=== PATIENT | female | born 1945 | race Caucasian/White ===

== ENCOUNTER 2016-12-03 23:48 | Inpatient (IN) | payer OTHER ==
[~2016-12-03] VITALS: Ht 154.9 cm; Wt 70.0 kg
--- NOTE | ~2016-12-03 | 2DMMODE ---
[facility] [place] [address] 2 D/M-MODE ECHOCARDIOGRAM Name: XIJAIME L Room #: 218-P ADM IN .R.#: [id number] Admission: 12/04/16 Attend Phys: Lauren Robles Discharge: Date of : 43 Date of Service: 12/04/16 1332 Report #: [id number] THIS REPORT FOR: //name// APPROVED REPORT Study performed: 12/04/2016 09:26:42 EXAM: Comprehensive 2D, Doppler, and color-flow Echocardiogram Patient Location: Bedside/Room 218 Blood Pressure: 164/87 mmHg HR: 59 bpm Rhythm: NSR Other Information Study Quality: Good Indications Atrial Fibrillation Hx: HTN 2D Dimensions RVDd: 28.10 mm LVEF(%): 51.24 (>50%) IVSd: 10.96 (7-11mm) LVOT Diam: 22.34 (18-24mm) LVDd: 54.18 mm PWd: 10.77 (7-11mm) Ascending Aorta: 43.56 mm LVDs: 39.87 (25-40mm) Aortic Root: 37.22 mm Montejo's LVEF: 51.24 % Volumes Left Atrial Volume (Systole) Single Plane 4CH: 58.55 mL Single Plane 2CH: 65.29 mL LA ESV Index: 41.00 mL/m2 Aortic Valve AoV Peak Wilton.: 2.04 m/s AI PHT: 792.62 ms AO Peak Gr.: 16.68 mmHg AO Mean Gr.: 9.36 mmHg LV Max P.78 mmHg AO V2 VTI: 457.23 mm LV Max: 1.09 m/s AI Vmax: 3.94 m/s AI Wyandot: 1.44 m/s2 Mitral Valve [facility] [place] [address] 2 D/M-MODE ECHOCARDIOGRAM Name: JAIME LAYNE Room #: 218-[facility] IN M.R.#: [id number] Admission: 12/04/16 Attend Phys: Lauren Robles Discharge: Date of : 43 Date of Service: 12/04/16 1332 Report #: [id number] MV PHT: 106.95 ms MV E Max Wilton.: 1.10 m/s E/A Ratio: 0.9 MV A Wilton.: 1.19 m/s MV Decel. Time: 368.79 ms Pulmonary Valve PV Peak Wilton.: 1.32 m/s PV Peak Gr.: 6.98 mmHg Tricuspid Valve TR Peak Wilton.: 2.69 m/s RAP Estimate: 5.00 mmHg TR Peak Gr.: 29.05 mmHg RVSP: 35.00 mmHg Left Ventricle The left ventricle is normal size. There is normal LV segmental wall motion. Mild concentric left ventricular hypertrophy. Left ventricular systolic function is low normal. LVEF is 55%. Grade I - abnormal relaxation pattern. Right Ventricle The right ventricle is normal size. The right ventricular systolic function is normal. Atria Left atrium is mild to moderately dilated. The right atrium size is normal. Aortic Valve Aortic valve is calcified. Mild aortic regurgitation. There is no aortic valvular stenosis. Mitral Valve Mitral valve leaflets are thickened. Mild mitral annular calcification. Mild to moderate mitral regurgitation. Tricuspid Valve The tricuspid valve is normal in structure. There is trace to mild tricuspid regurgitation. The right atrial pressure is estimated at 5 mmHg. There is mild pulmonary hypertension with an estimate PAP of 35mmHg. Pulmonic Valve The pulmonary valve is normal in structure. Mild pulmonic regurgitation. Great Vessels Aortic root is borderline dilated. The ascending aorta is dilated at 4.4cm. IVC is normal in size and collapses >50% with [facility] [address] [place] [address] 2 D/M-MODE ECHOCARDIOGRAM Name: JAIME LAYNE Room #: 218-P [facility] IN [facility]#: [id number] Admission: 12/04/16 Attend Phys: Luaren Robles Discharge: Date of : 43 Date of Service: 12/04/16 1332 Report #: [id number] inspiration. Pericardium Very small pericardial effusion. <Conclusion> The left ventricle is normal size. Normal LV segmental wall motion. Mild concentric left ventricular hypertrophy. LVEF 55%. Grade I diastolic dysfunction. Aortic valve is calcified, trileaflet. Mild aortic regurgitation, no significant stenosis. Mitral valve leaflets are thickened. Mild mitral annular calcification. Mild mitral regurgitation. There is mild pulmonary hypertension with an estimate PAP of 35mmHg. The ascending aorta is dilated at 4.4cm. Very small pericardial effusion. <ELECTRONICALLY SIGNED> By: Erickson aDigle MD, [facility] 12/04/161331 31 31 Erickson Daigle MD, FACC /INF
--- NOTE | ~2016-12-03 | EKG ---
[address] [address] ELECTROCARDIOGRAM REPORT Name: JAIME LAYNE Room #: 218-P ADM IN M.R.#: [id number] Admission: 12/04/16 Attend Phys: Lauren Rocha Discharge: Date of : 43 Report #: [id number] THIS REPORT FOR: //name// [facility] ED Test Date: 2016-12-04 Test Time: 00:03:53 Pat Name: JAIME LAYNE Department: Room: 218 Gender: F Mechanical Operator: [email or web address] : 1945 Requested By: Sathya Jolly Order Number: [id number] MD: Erickson Daigle Measurements Intervals [place] Rate: 132 P: [place]: QRS: -22 QRSD: 95 T: 122 QT: 295 QTc: 437 Interpretive Statements Atrial fibrillation LVH with secondary repolarization abnormality No previous ECG available for comparison Electronically Signed On 12-05-2016 11:36:08 CDT by Erickson Daigle [email or web address] <ELECTRONICALLY SIGNED> By: Erickson Daigle MD, [facility] 12/05/16 1136 0003 0003 Erickson Daigle MD, FACC /EPI
--- NOTE | ~2016-12-03 | HC ---
[facility] [address] [address] [place] [address] CONSULTATION Name: JAIME LAYNE Room #: 218-P [facility] IN M.R.#: [id number] Admission: 12/04/16 Attend Phys: Lauren Rocha Discharge: Date of : 43 Report #: [id number] THIS REPORT FOR: //name// CC: FAM unknown Lauren Rocha DATE OF SERVICE: 12/04/2016 REASON FOR CONSULTATION: Atrial fibrillation. HISTORY OF PRESENT ILLNESS: The patient is a 71-year-old woman with history of hypertension, but otherwise fairly limited past medical history. She was watching television last evening and reports the development of a pounding and racing heart beat. This frightened her and knew that this was not normal. She presented to the Emergency Department where she was found to be in atrial fibrillation with a rapid ventricular response. With intravenous Cardizem and improved heart rate control, her palpitations and chest symptoms resolved. She has now converted back to sinus rhythm. She denies a prior history of atrial fibrillation. No history of heart failure symptoms, chest heaviness or pressure, near syncope or syncope. She is active and exercises regularly without limitation. ALLERGIES: She is allergic to CODEINE. MEDICATIONS: Include lisinopril 40 mg daily, oxybutynin 5 mg twice daily and Namzaric. Her past history and medical records have been reviewed and include a history of a prior and remote tobacco dependency. She lives with her son. FAMILY HISTORY: Unknown; she was adopted. REVIEW OF SYSTEMS: All systems negative except as that noted above. PHYSICAL EXAMINATION: GENERAL: She is a pleasant woman in no distress. VITAL SIGNS: Blood pressure is 160/80, heart rate of 69 and regular, she is afebrile, 5 feet 1 inches tall and 154 pounds. HEENT: There are neither xanthelasma, subcutaneous xanthomata, oral mucosal or digital cyanosis or kyphoscoliosis present. CHEST: Clear to auscultation and percussion. CARDIOVASCULAR: Regular rate and rhythm with a normal S1 and S2. No murmurs, gallops or rubs. ABDOMEN: Soft and nontender. EXTREMITIES: Without cyanosis, clubbing or edema. Radial pulses are 2+. NEUROLOGIC: She is alert with a nonfocal exam. [facility] [address] [place] [address] CONSULTATION Name: JAIME LAYNE Room #: [address] [place] [address] IN .R.#: [id number] Admission: 12/04/16 Attend Phys: Lauren Rocha Discharge: Date of : 43 Report #: [id number] LABORATORY DATA: Sodium is 144, potassium 3.7, creatinine 0.8, troponin of 0 and proBNP of 1391. White count 7.1, hemoglobin 13, hematocrit 41 and platelet count 175. DIAGNOSTIC DATA: Chest x-ray demonstrates mild pulmonary venous congestion. EKG this morning shows sinus rhythm. IMPRESSION: 1. Paroxysmal atrial fibrillation, now in sinus rhythm. 2. Hypertension. 3. Remote tobacco dependency. 4. Hypercoagulable (CHADS-VASc score of 2). 5. Dementia RECOMMENDATIONS: 1. Migration from intravenous to oral Cardizem. 2. Anticoagulant therapy given elevated CHADS-VASc score, therapy with apixaban has been started. 3. Echocardiogram with Doppler. 4. Thyroid function studies. Further thoughts will be forthcoming based on this evaluation. Thank you for asking me to participate in the patient's care. <ELECTRONICALLY SIGNED> By: Erickson Daigle MD, [facility] 12/05/16 1209 0857 1651 Erickson Daigle MD, [facility] /nt
--- NOTE | ~2016-12-03 | H ---
[facility] [address] [address] HISTORY AND PHYSICAL Name: JAIME LAYNE Room #: 218-P [facility] IN .R.#: [id number] Admission: 12/04/16 Attend Phys: Lauren Rocha Discharge: 12/05/16 Date of : 43 Report #: [id number] THIS REPORT FOR: //name// CC: FAM unknown Lauren Rocha DATE OF SERVICE: 12/04/2016 ATTENDING PHYSICIAN: Lauren Rocha M.D. PRIMARY CARE PHYSICIAN: None. CHIEF COMPLAINT: Chest pounding and shortness of breath. HISTORY OF PRESENT ILLNESS: The patient is a 71-year-old female with a history of mild dementia. Apparently, she was at home with her son when she had a sudden onset chest pounding. She said there was a comfortable with this in her chest. She also had some shortness of breath. She denied any nausea or vomiting or diaphoresis with this. The pounding persisted, and so she came into the ER. She was tearful on arrival. She denies any recent similar episodes, but did state she was actually hospitalized for this one other time in 2004. I actually have those records, and she was admitted for heart palpitations and was monitored on telemetry and actually sent home on Holter monitor for a few weeks, and there was no arrhythmia ever seen. She denied any prior diagnosis of atrial fibrillation. As far as her chest discomfort, there was no radiation of the pain, and she denies any recent exertional chest pain. In the ER, she was noted to have atrial fibrillation with a rate up to 140. She was given a Cardizem bolus and Cardizem drip, and she is now rate controlled in the 70s to 80s. She does have some mild dementia, so she is somewhat a poor historian, but her son is at her bedside and helping with some of this information. She did state she had a recent cough with congestion and sore throat. She has been taking some rikw-voh-kvtrjav medications. She is now resting comfortably and says her pain is gone, but that she occasionally still feels a flutter in her chest. PAST MEDICAL HISTORY: GERD, asthma, hypertension, allergic rhinitis and dementia. PAST SURGICAL HISTORY: Bilateral hip replacements. ALLERGIES: CODEINE, unknown reaction. She also says most ANESTHESIA makes her very sleepy for a few days. HOME MEDICATIONS: Lisinopril 40 mg daily, Namzaric 28/10 1 tab daily and oxybutynin 5 mg b.i.d. SOCIAL HISTORY: The patient is an ex-smoker. She quit about 29 years ago, but [address] [place] [address] HISTORY AND PHYSICAL Name: JAIME LAYNE Room #: 218-P [facility] IN M.R.#: [id number] Admission: 12/04/16 Attend Phys: Lauren Rocha Discharge: 12/05/16 Date of : 43 Report #: [id number] at one point was smoking up to 3 packs per day. She drinks alcohol rarely. Denies any drug use. She lives at home with her son. REVIEW OF SYSTEMS: Unobtainable due to altered mental status. PHYSICAL EXAMINATION: GENERAL: The patient is an alert female in no acute distress. VITAL SIGNS: Temperature is 36.8, heart rate 138 on arrival, it is now 72, respirations 32, is now down to 20 and blood pressure was 160/90 and is now down to 112/74 and oxygen 96% on room air. HEENT: PERRLA. Sclerae are nonicteric. Oral mucosa is pink and moist. NECK: Supple, no JVD noted. CARDIOVASCULAR: Heart rate is irregular, but no murmurs, rubs or gallops. RESPIRATORY: Breath sounds are clear bilaterally. No wheezing or rhonchi. Breathing is nonlabored. ABDOMEN: Soft, nontender and nondistended with positive bowel sounds. VASCULAR: No edema noted. Pedal pulses are 2+. NEUROLOGIC: The patient is alert and oriented x 3. She is aware she is in the hospital and that it is November 2016, she recognized her son. She is able to follow all commands and is moving all extremities equally. She is a poor historian overall. SKIN: She does have a reddened rash area on her lateral right calf area. You can see there is some underlying scarring with a brownish discoloration, and on top of that, there are some reddened patchy areas, but there are no open wounds or bleeding. There is no surrounding erythema such as cellulitis. LABORATORY AND DIAGNOSTIC DATA: WBC is 7.1, hemoglobin 13.4 and platelets 175. Sodium 144, potassium 3.7, BUN 24 and creatinine 0.8. Troponins negative. BNP is 1391. EKG showing atrial fibrillation, rate of 132, with some LVH and chest x-ray showed some cardiomegaly with mild pulmonary vascular effusion, no pneumothorax or new infiltrations. ASSESSMENT AND PLAN: 1. Atrial fibrillation with rapid ventricular response. This is new onset. She has been given Cardizem and remains on a Cardizem bolus. We will titrate that to keep her heart rate less than 100. We will go ahead and give a dose of therapeutic Lovenox and consult cardiology. Continue to monitor on telemetry. She currently remains in sinus rhythm, but she is now rate controlled in the 70s. We will have cardiology address anticoagulation as well. 2. Hypertension. Blood pressure is elevated. Resume lisinopril as at home. 3. Dementia. This is stable. Continue Namzaric as at home. The patient is at baseline according to her son. 4. Deep venous thrombosis prophylaxis, place sequential compression devices. [facility] [address] [place] [address] HISTORY AND PHYSICAL Name: JAIME LAYNE Room #: 218-P [facility] [id number] Admission: 12/04/16 Attend Phys: Lauren Rocha Discharge: 12/05/16 Date of : 43 Report #: [id number] We will continue to follow the patient closely throughout the hospitalization and make changes based on clinical status. <ELECTRONICALLY SIGNED> By: KAREL Hirsch 12/07/16 0608 0717 1044 KAREL Hirsch /emy
--- NOTE | ~2016-12-03 | EKG ---
[place] [address] [facility] [place] [address] ELECTROCARDIOGRAM REPORT Name: JAIME LAYNE Room #: 218- ADM IN M.R.#: [id number] Admission: 12/04/16 Attend Phys: Lauren Rocha Discharge: Date of : 43 Report #: [id number] THIS REPORT FOR: //name// Test Date: 2016-12-04 Test Time: 09:12:44 Pat Name: JAIME LAYNE Department: Room: 218 P Gender: F Senior Safety Support Manager: JOANNE : 1945 Requested By: Erickson Daigle Order Number: [id number] MD: Erickson Daigle Measurements Intervals [place] Rate: 59 P: 45 DC: 165 QRS: -22 QRSD: 110 T: 64 QT: 438 QTc: 434 Interpretive Statements Sinus rhythm Abnormal R-wave progression, late transition LVH with IVCD and secondary repol abnrm No previous ECG available for comparison Electronically Signed On 12-05-2016 11:38:21 CDT by Erickson Daigle [email or web address] <ELECTRONICALLY SIGNED> By: Erickson Daigle MD, [facility] 12/05/16 1138 1 1 Erickson Daigle MD, [facility] /EPI
--- NOTE | ~2016-12-03 | EKG ---
[place] [address] [facility] [place] [address] ELECTROCARDIOGRAM REPORT Name: JAIME LAYNE Room #: 218- ADM IN M.R.#: [id number] Admission: 12/04/16 Attend Phys: Lauren Rocha Discharge: Date of : 43 Report #: [id number] THIS REPORT FOR: //name// [facility] Test Date: 2016-12-05 Test Time: 08:52:08 Pat Name: JAIME LAYNE Department: Room: 218 P Gender: F Operational Risk Manager: GEETHA : 1945 Requested By: Erickson Daigle Order Number: [id number] MD: Erickson Daigle Measurements Intervals [place] Rate: 60 P: 45 MA: 131 QRS: -24 QRSD: 110 T: 78 QT: 486 QTc: 486 Interpretive Statements Sinus rhythm Probable left atrial enlargement Abnormal R-wave progression, late transition LVH with IVCD and secondary repol abnrm No previous ECG available for comparison Electronically Signed On 12-05-2016 11:57:02 CDT by Erickson Daigle [email or web address] <ELECTRONICALLY SIGNED> By: Erickson Diagle MD, [facility] 12/05/16 1157 0852 0852 Erickson Daigle MD, [facility] /EPI
[~2016-12-03 23:48] MED LIST: ANTIVERT25 MG PO; ARICEPT 5 MG TAB5 MG; ARICEPT 5 MG TAB5 MG PO; DILTIAZEM 24HR240 MG PO; FLEXERIL PO; IBUPROFEN 600600 M1 PO; KEFLEX500 MG PO; LISINOPRIL20 MG PO; LISINOPRIL40 MG PO; NAMENDA 10 MG T10 MG PO; NORCO 5-325 TA1 EACH PO; OXYBUTYNIN 5 MG5 M2 PO; PAXIL 20 MG TAB20 M1 PO; TOPROL XL25 MG PO; TRAMADOL 50 MG50 MG PO; ZOFRAN ODT4 MG PO; ZOFRAN4 MG PO
[2016-12-04] VITALS (7 sets, daily range): BP systolic 112–179; BP diastolic 66–90
[2016-12-04 00:16] LABS: BASOPHILS 1.1 % (0.0-2.0); EOSINOPHILS 1.8 % (0.0-3.0); HEMOGLOBIN 13.4 gm/dL (12.0-15.0); LYMPHOCYTES 35.3 % (24.0-44.0); MCH 29.9 pg (26.0-34.0); MCHC 32.7 g/dL (28.0-37.0); MCV 91.3 fL (80.0-100.0); MONOCYTES 5.5 % (1.0-8.0); PLATELET COUNT 175 thou/uL (150-400); POLYS 56.3 % (36.0-66.0); RDW 14.3 % (10.5-14.5); WBC 7.1 thou/uL (4.0-11.0)
[2016-12-04 00:20] LABS: MANUAL DIFF NO
[2016-12-04 00:41] LABS: ANION GAP 11 mmol/L (7-16); BUN 24 mg/dL (7-18); CALCIUM 8.9 mg/dL (8.5-10.1); CHLORIDE 107 mmol/L (98-107); CO2 26 mmol/L (21-32); CREATININE 0.8 mg/dL (0.6-1.0); GLUCOSE 104 mg/dL (74-106); NT-PRO BRAIN NAT PEPTIDE 1391 pg/mL (<300); POTASSIUM 3.7 mmol/L (3.5-5.1); SODIUM 144 mmol/L (136-145); TROPONIN-I < 0.04 ng/mL (<0.04-0.07)
[2016-12-04] MEDS ORDERED: NAMZARIC 28 MG1 EACH PO (02:43)
[2016-12-04] MEDS ORDERED: PRINIVIL20 MG PO (02:43)
[2016-12-04] MEDS ORDERED: OXYBUTYNIN 5 MG5 M2 PO (02:43)
[2016-12-05 00:05] VITALS: BP 183/76
[2016-12-05 03:04] LABS: ABSOLUTE NEUTROPHILS 3.5 thou/uL (1.4-8.2); BASOPHILS 1.1 % (0.0-2.0); EOSINOPHILS 2.6 % (0.0-3.0); HEMATOCRIT 38.7 % (37.0-47.0); HEMOGLOBIN 12.6 gm/dL (12.0-15.0); LYMPHOCYTES 34.6 % (24.0-44.0); MCH 30.1 pg (26.0-34.0); MCHC 32.6 g/dL (28.0-37.0); MCV 92.2 fL (80.0-100.0); MONOCYTES 6.4 % (1.0-8.0); PLATELET COUNT 168 thou/uL (150-400); POLYS 55.3 % (36.0-66.0); RDW 14.5 % (10.5-14.5); WBC 6.3 thou/uL (4.0-11.0)
[2016-12-05 03:05] VITALS: BP 178/76
[2016-12-05 03:10] LABS: CALCIUM 8.7 mg/dL (8.5-10.1); CREATININE 0.8 mg/dL (0.6-1.0); POTASSIUM 3.8 mmol/L (3.5-5.1)
[2016-12-05 03:26] LABS: MANUAL DIFF NO
[2016-12-05] MEDS ORDERED: CARDIZEM CD180 MG PO (08:53)
[2016-12-05] MEDS ORDERED: ELIQUIS5 MG PO (08:53)
[2016-12-05 09:15] VITALS: BP 158/66
[2016-12-05 10:25] VITALS: BP 158/66
[2016-12-05 13:37] VITALS: BP 158/66
== END 2016-12-05 13:16 | disposition home or self-care (01) | DRG 309 ==
LOC: ER 23:48 → EROBS 12-04 02:08 → 2N 12-04 02:08
PROVIDERS: Emergency Medicine; Hospitalist
DX: I48.0 Paroxysmal atrial fibrillation (principal); D68.59 Other primary thrombophilia; I50.30 Unspecified diastolic (congestive) heart failure; K21.9 Gastro-esophageal reflux disease without esophagitis; J45.909 Unspecified asthma, uncomplicated; J31.0 Chronic rhinitis; F03.90 Unspecified dementia, unspecified severity, without behavioral disturbance, psychotic disturbance, mood disturbance, and anxiety; Z96.643 Presence of artificial hip joint, bilateral; I11.0 Hypertensive heart disease with heart failure; Z87.891 Personal history of nicotine dependence; Z88.6 Allergy status to analgesic agent; Z79.899 Other long term (current) drug therapy
CPT/HCPCS: 10081

== ENCOUNTER 2017-01-31 01:55 | Inpatient (IN) | payer OTHER ==
[~2017-01-31] VITALS: Ht 162.6 cm; Wt 60.4 kg
[2017-01-31] VITALS (7 sets, daily range): BP systolic 125–171; BP diastolic 62–92
--- NOTE | ~2017-01-31 | EKG ---
[address] [address] ELECTROCARDIOGRAM REPORT Name: JAIME LAYNE Room #: 216-P ADM IN M.R.#: [id number] Admission: 01/31/17 Attend Phys: Kumar Cunha MD Discharge: Date of : 43 Report #: [id number] THIS REPORT FOR: //name// [facility] ED Test Date: 2017-01-31 Test Time: 02:19:14 Pat Name: JAIME LAYNE Department: Room: [facility] Gender: F Floor Surfacer: heriberto : 1945 Requested By: Anh Irizarry Order Number: [id number] MD: Erickson Daigle Measurements Intervals [place] Rate: 103 P: [place]: QRS: -27 QRSD: 99 T: 83 QT: 362 QTc: 474 Interpretive Statements Atrial fibrillation LVH with secondary repolarization abnormality Compared to ECG 12/05/2016 08:52:08 Sinus rhythm no longer present Electronically Signed On 01-31-2017 8:36:47 CDT by Erickson Daigle [email or web address] <ELECTRONICALLY SIGNED> By: Erickson Daigle MD, [facility] 01/31/17 0836 8 8 Erickson Daigle MD, [facility] /EPI
--- NOTE | ~2017-01-31 | HC ---
[facility] [place] [address] [address] [place] [address] CONSULTATION Name: JAIME LAYNE Room #: 216-P ADM IN M.R.#: [id number] Admission: 01/31/17 Attend Phys: Kumar Cunha MD Discharge: Date of : 43 Report #: [id number] THIS REPORT FOR: //name// CC: Erickson Daigle [facility] physician/PCP Kumar Cunha REASON FOR CONSULTATION: Atrial fibrillation. HISTORY OF PRESENT ILLNESS: The patient is a 71-year-old woman with hypertension and paroxysmal atrial fibrillation. She was admitted in November of this year with atrial fibrillation, which converted pharmacologically to sinus rhythm. Her echocardiogram at that time demonstrated normal left ventricular systolic function and mild dilatation of the ascending aorta at 4.4 cm. Significant valvular heart disease was absent. Apparently, she was found walking along [facility], trying to get to the hospital. When she awakened, she described an irregular and rapid heart rhythm. Her history also includes some memory problems. She denies chest heaviness, pressure, or ischemic type symptoms. No history of near syncope or syncope. She was placed on intravenous Cardizem and had improved heart rate control and resolution of her symptoms. She continues to be in atrial fibrillation, although with a controlled ventricular response. ALLERGIES: To CODEINE. MEDICATIONS: Include lisinopril 40 mg daily, diltiazem CD 180 mg daily, and apixaban 5 mg twice daily. PAST MEDICAL HISTORY: Medical records reviewd include a history of hypertension, left hip replacement, right hip replacement, early dementia, and COPD. SOCIAL HISTORY: She is a former smoker, lives with her son. FAMILY HISTORY: Unknown, she was adopted. REVIEW OF SYSTEMS: All systems negative except as that noted above. PHYSICAL EXAMINATION: GENERAL: A pleasant woman, in no distress. VITAL SIGNS: Blood pressure is 150/90, heart rate of 100 and irregular, respirations unlabored at 18, 5 feet 4 inches tall, 133 pounds. HEENT: There are neither xanthelasma, subcutaneous xanthomata, oral mucosal or digital cyanosis, or kyphoscoliosis present. CHEST: Clear to auscultation and percussion. CARDIAC: An irregularly irregular rhythm with a normal S1, S2. ABDOMEN: Soft and nontender. [address] [address] CONSULTATION Name: JAIME LAYNE Room #: 216-[facility] IN M.R.#: [id number] Admission: 01/31/17 Attend Phys: Kumar Cunha MD Discharge: Date of : 43 Report #: [id number] EXTREMITIES: Without cyanosis, clubbing, or edema. Radial pulses are 2+. NEUROLOGIC: She is alert with a nonfocal exam. LABORATORY DATA: Sodium is 146, potassium 3.8, and creatinine 0.8. ProBNP of 3091. Troponin 0. Coagulation parameters are normal. White count 5.9, hemoglobin 13, hematocrit 39 and platelet count 147. Chest x-ray demonstrates cardiomegaly, no acute process. EKG, atrial fibrillation with LVH. IMPRESSION: 1. Atrial fibrillation with a rapid ventricular response. 2. Hypertension. 3. Diastolic heart failure. 4. Hypercoagulable condition. 5. Dementia. RECOMMENDATIONS: 1. Transition from IV to oral Cardizem. Continue apixaban. 2. Confirm medication doses and compliance with therapy with her son. 3. Given the asymptomatic nature of this rhythm disturbance with a controlled ventricular response and moderately high likelihood of recurrence, I would recommend a rate control strategy at this point. I have discussed these issues with the patient. Thank you for asking me to participate in her care. <ELECTRONICALLY SIGNED> By: Erickson Daigle MD, [facility]ACC 02/01/17 0907 0753 1339 Erickson Daigle MD, FACC /nt
[~2017-01-31 01:55] MED LIST changes: +CARDIZEM CD180 MG PO; +ELIQUIS5 MG PO; +NAMZARIC 28 MG1 EACH PO; +PRINIVIL20 MG PO
[2017-01-31 02:35] LABS: ABSOLUTE NEUTROPHILS 3.1 thou/uL (1.4-8.2); BASOPHILS 1.1 % (0.0-2.0); EOSINOPHILS 2.6 % (0.0-3.0); HEMATOCRIT 39.9 % (37.0-47.0); HEMOGLOBIN 13.3 gm/dL (12.0-15.0); LYMPHOCYTES 37.3 % (24.0-44.0); MCH 30.7 pg (26.0-34.0); MCHC 33.4 g/dL (28.0-37.0); MCV 91.8 fL (80.0-100.0); MONOCYTES 6.8 % (1.0-8.0); PLATELET COUNT 147 thou/uL (150-400); POLYS 52.2 % (36.0-66.0); RBC 4.34 mil/uL (4.20-5.00); RDW 14.5 % (10.5-14.5); WBC 5.9 thou/uL (4.0-11.0)
[2017-01-31 02:41] LABS: ANION GAP 11 mmol/L (7-16); BUN 17 mg/dL (7-18); CALCIUM 8.7 mg/dL (8.5-10.1); CHLORIDE 111 mmol/L (98-107); CO2 24 mmol/L (21-32); CREATININE 0.8 mg/dL (0.6-1.0); GLUCOSE 103 mg/dL (74-106); POTASSIUM 3.8 mmol/L (3.5-5.1); SODIUM 146 mmol/L (136-145)
[2017-01-31 02:50] LABS: TROPONIN-I < 0.04 ng/mL (<0.04-0.07)
[2017-01-31 03:02] LABS: MANUAL DIFF NO
[2017-01-31 09:29] LABS: NT-PRO BRAIN NAT PEPTIDE 1722 pg/mL (<300); TROPONIN-I < 0.04 ng/mL (<0.04-0.07)
[2017-01-31 11:38] LABS: URINE BILIRUBIN NEGATIVE (Negative); URINE BLOOD NEGATIVE (Negative); URINE COLOR YELLOW; URINE GLUCOSE-RANDOM* NEGATIVE (Negative); URINE KETONES NEGATIVE (Negative); URINE LEUKOCYTES-REFLEX NEGATIVE (Negative); URINE PROTEIN (DIPSTICK) NEGATIVE (Negative); URINE SPECIFIC GRAVITY 1.015 (1.003-1.035); URINE UROBILINOGEN 0.2 E.U./dl (0.2-1.0)
[2017-01-31] MEDS ORDERED: FISH OIL 1,001000 M2 PO (19:45)
[2017-01-31] MEDS ORDERED: APAP500 PO (19:45)
[2017-01-31] MEDS ORDERED: ASPIR 8181 M1 PO (19:47)
[2017-01-31] MEDS ORDERED: NAMZARIC 28 MG1 EACH PO (19:48)
[2017-02-01 00:03] VITALS: BP 186/63
[2017-02-01 05:01] VITALS: BP 158/53
[2017-02-01 07:38] VITALS: BP 159/68
[2017-02-01 09:11] VITALS: BP 159/68
== END 2017-02-01 12:43 | disposition home or self-care (01) | DRG 309 ==
LOC: ER 01:55 → EROBS 03:14 → 2N 03:14
PROVIDERS: Emergency Medicine; Internal Medicine; Nurse Practitioner Acute Care
DX: I48.0 Paroxysmal atrial fibrillation (principal); I50.30 Unspecified diastolic (congestive) heart failure; D68.59 Other primary thrombophilia; K21.9 Gastro-esophageal reflux disease without esophagitis; Z96.643 Presence of artificial hip joint, bilateral; G30.9 Alzheimer's disease, unspecified; F02.80 Dementia in other diseases classified elsewhere, unspecified severity, without behavioral disturbance, psychotic disturbance, mood disturbance, and anxiety; J44.9 Chronic obstructive pulmonary disease, unspecified; I11.0 Hypertensive heart disease with heart failure; Z79.899 Other long term (current) drug therapy; Z88.6 Allergy status to analgesic agent; Z87.891 Personal history of nicotine dependence
CPT/HCPCS: 10081

== ENCOUNTER 2017-04-05 04:15 | Observation (INO) | payer OTHER ==
[2017-04-05] VITALS (7 sets, daily range): BP systolic 109–172; BP diastolic 63–78
[~2017-04-05] VITALS: Ht 154.9 cm; Wt 75.6 kg
--- NOTE | ~2017-04-05 | EKG ---
[address] [place] [address] ELECTROCARDIOGRAM REPORT Name: JAIME LAYNE Room #: [facility]#: [id number] Admission: Attend Phys: Discharge: Date of : 43 Report #: [id number] THIS REPORT FOR: //name// [facility] ED Test Date: 2017-04-05 Test Time: 04:29:52 Pat Name: JAIME LAYNE Department: Room: Gender: F Senior Case Manager: EARLE : 1945 Requested By: Alexander Burdick Order Number: [id number] MD: Measurements Intervals [place] Rate: 140 P: [place]: QRS: -23 QRSD: 101 T: 46 QT: 317 QTc: 484 Interpretive Statements Atrial fibrillation Abnormal R-wave progression, late transition LVH with secondary repolarization abnormality Compared to ECG 01/31/2017 02:19:14 No significant changes [email or web address] By: 8 8 Evaristo Loera MD /EPI
--- NOTE | ~2017-04-05 | EKG ---
[address] [address] ELECTROCARDIOGRAM REPORT Name: XIJAIME L Room #: 217-[facility]#: [id number] Admission: 04/05/17 Attend Phys: Gian Blevins MD Discharge: Date of : 43 Report #: [id number] THIS REPORT FOR: //name// [facility] Test Date: 2017-04-06 Test Time: 08:34:58 Pat Name: JAIME LAYNE Department: Room: [facility] Gender: F Satellite Communications Operator: OLVIN : 1945 Requested By: Koby Marquez Order Number: [id number] MD: Measurements Intervals [place] Rate: 50 P: 63 [place]: 134 QRS: -10 QRSD: 122 T: 20 QT: 500 QTc: 456 Interpretive Statements Sinus rhythm LVH with secondary repolarization abnormality Compared to ECG 01/31/2017 02:19:14 Atrial fibrillation no longer present [email or web address] By: 0834 0834 Epiphany EpiphanyMD /EPI
[~2017-04-05 04:15] MED LIST changes: +APAP500 PO; +ASPIR 8181 M1 PO; +FISH OIL 1,001000 M2 PO
[2017-04-05 04:51] LABS: ABSOLUTE NEUTROPHILS 3.5 thou/uL (1.4-8.2); BASOPHILS 1.1 % (0.0-2.0); EOSINOPHILS 1.8 % (0.0-3.0); HEMATOCRIT 43.5 % (37.0-47.0); HEMOGLOBIN 14.4 gm/dL (12.0-15.0); LYMPHOCYTES 35.5 % (24.0-44.0); MANUAL DIFF NO; MCH 30.8 pg (26.0-34.0); MCV 93.4 fL (80.0-100.0); MONOCYTES 5.7 % (1.0-8.0); PLATELET COUNT 171 thou/uL (150-400); POLYS 55.9 % (36.0-66.0); RBC 4.66 mil/uL (4.20-5.00); WBC 6.3 thou/uL (4.0-11.0)
[2017-04-05 04:55] LABS: ANION GAP 8 mmol/L (7-16); BUN 20 mg/dL (7-18); CALCIUM 8.8 mg/dL (8.5-10.1); CHLORIDE 109 mmol/L (98-107); CO2 27 mmol/L (21-32); CREATININE 0.8 mg/dL (0.6-1.0); GLUCOSE 95 mg/dL (74-106); SODIUM 144 mmol/L (136-145)
[2017-04-05 05:11] LABS: ALBUMIN 3.8 g/dL (3.4-5.0); ALKALINE PHOSPHATASE 134 U/L (46-116); CK-MB MASS < 0.5 ng/mL (<0.5-3.6); MAGNESIUM 2.1 mg/dL (1.8-2.4); NT-PRO BRAIN NAT PEPTIDE 2273 pg/mL (<300); SGOT 21 U/L (15-37); SGPT 19 U/L (30-65); TOTAL BILIRUBIN 0.5 mg/dL (<0.1-1.0); TOTAL PROTEIN 7.1 g/dL (6.4-8.2); TROPONIN-I < 0.04 ng/mL (<0.04-0.07)
[2017-04-06 03:44] LABS: MCH 31.1 pg (26.0-34.0); MCHC 33.3 g/dL (28.0-37.0); MCV 93.5 fL (80.0-100.0); RBC 3.96 mil/uL (4.20-5.00); RDW 13.8 % (10.5-14.5)
[2017-04-06 03:53] LABS: HEMOGLOBIN 12.3 gm/dL (12.0-15.0)
[2017-04-06 03:54] LABS: CALCIUM 8.7 mg/dL (8.5-10.1); CREATININE 0.8 mg/dL (0.6-1.0); POTASSIUM 4.4 mmol/L (3.5-5.1)
[2017-04-06 04:15] VITALS: BP 178/57
[2017-04-06 04:29] VITALS: BP 169/72
[2017-04-06 07:26] VITALS: BP 160/66
[2017-04-06] MEDS ORDERED: FLECAINIDE ACET50 M1 PO (08:20)
[2017-04-06 11:13] VITALS: BP 160/66
[2017-04-06 11:40] VITALS: BP 160/66
[2017-04-06 13:27] VITALS: BP 160/66
== END 2017-04-06 13:24 | disposition home or self-care (01) ==
LOC: ER 04:15 → 2N 05:20 → EROBS 05:20 → 2N 07:00
PROVIDERS: Emergency Medicine; Nurse Practitioner Family
DX: I48.91 Unspecified atrial fibrillation (principal); I10 Essential (primary) hypertension; R00.2 Palpitations; I51.7 Cardiomegaly; K21.9 Gastro-esophageal reflux disease without esophagitis; J45.909 Unspecified asthma, uncomplicated; G30.0 Alzheimer's disease with early onset; F02.80 Dementia in other diseases classified elsewhere, unspecified severity, without behavioral disturbance, psychotic disturbance, mood disturbance, and anxiety; Z87.891 Personal history of nicotine dependence